=== PATIENT | male | born 1935 | race Caucasian/White ===

== ENCOUNTER 2019-02-26 16:07 | Inpatient (IN) | payer MEDICARE, OTHER ==
[~2019-02-26] VITALS: Ht 167.6 cm; Wt 66.9 kg
[~2019-02-26 16:07] MED LIST: ALEVE 220MG220 MG PO; ASPIRIN E.C. 8181 MG PO; EFFIENT10 MG PO; GLUCOPHAGE500 MG/TAB PO; LIPITOR20 MG PO; NITROQUICK0.4 MG SL; PRINIVIL5 MG PO; PROTONIX 40MG T40 MG PO; TIROSINT100 MCG PO; TOPROL XL 50MG50 MG PO
[2019-04-17] VITALS (13 sets, daily range): BP systolic 105–147; BP diastolic 53–72; PULSE 58–104; TEMP 97–98.8
[2019-04-17] MEDS ORDERED: ALEVE 220MG220 MG PO (05:16)
[2019-04-17] MEDS ORDERED: ASPIRIN 81M81 MG/TA2 PO (05:16)
[2019-04-17] MEDS ORDERED: LIPITOR20 MG PO (05:17)
[2019-04-17] MEDS ORDERED: TIROSINT50 MC1 PO (05:17)
[2019-04-17] MEDS ORDERED: TYLENOL 325MG325 MG PO (05:18)
[2019-04-17] MEDS ORDERED: ULTRAM 50MG TAB50 MG PO (05:18)
[2019-04-17] MEDS ORDERED: KAPSPARGO SPRIN50 MG PO (05:18)
--- NOTE | 2019-04-17 05:51 | NUR ---
Pt. arrived to the floor via wheelchair. Pt. is A&OX3, assessment complete. IV started to rt. forearm. Pt. denies pain or other needs, call light within reach.
--- NOTE | 2019-04-17 10:48 | NUR ---
PT TO ROOM 330 PER BED WITH REPORT FROM JOE GRAY @7200, PT IS A/O X3 LUNGS CLEAR, BOWEL SOUNDS PRESENT. DRESSING TO RIGHT HIP CDI WITH FOAM TAPE OVER INCISION . IV TO PUMP, SCDS AND TEDS BILATERALLY. PT ORIENTED TO ROOM AND ROOM SERVICE. FAMILY AT BEDSIDE.
--- NOTE | 2019-04-17 15:49 | NUR ---
HECTOR met with the patient and patient's son, Joey, to discuss discharge plan. The patient lives alone in [place]. He states that his daughter, Lisa Watts, lives in [place]. He reports independence with ADLs prior to hospitalization and has a cane and walker. The patient's PCP is Dr. Sushila Oconnell and he receives his medications at [facility]. He reports no difficulties obtaining his meds. The patient's advanced directives are in his chart. The patient's DPOA-HC is his daughter, Lisa Watts (ph#[phone]) and the alternate is Thee Jara. The patient and his son report that the plan is for the patient to go to [facility] upon discharge. HECTOR presented and explained the Patient Choice Form to the patient and patient's son. The patient's son verbalized understanding, signed, and he was provided a copy. HECTOR contacted and faxed a referral to Yolanda at [facility]. SW awaiting their screening.
--- NOTE | 2019-04-17 20:10 | NUR ---
Pt. sitting up in bed at this time. Pt. is A&OX3, assessment complete. IV to rt. forearm patent. Dressing to rt. hip CDI. Pt. reported pain at a 6 on pain scale, gave pain meds per orders. Valiente catheter to DD, clear yellow urine noted. Pt. denies further needs, call light within reach.
[2019-04-18 05:09] VITALS: BP 125/58; PULSE 82; TEMP 97.8
[2019-04-18 07:03] LABS: HEMATOCRIT 38.3 % (42.0-52.0); HEMOGLOBIN 12.6 g/dl (13.5-18.0)
--- NOTE | 2019-04-18 07:30 | NUR ---
PT RESTING IN BED ON ROUNDS, REPORT FROM JESUS GRAY. DR CHIN IN TO SEE PT THIS AM. SEE ORDERS.
[2019-04-18 07:36] VITALS: BP 137/55; PULSE 88; TEMP 98.1
--- NOTE | 2019-04-18 09:06 | NUR ---
PT WORKING WITH OT AT THIS TIME. TOLERATING WELL. WILL WORK WITH PT THIS PM.
--- NOTE | 2019-04-18 09:45 | NUR ---
DRESSING CHANGE COMPLETE, INCISION CDI WITH EDGES WELL APPROXIMATED. PT TOLERATED WELL.
--- NOTE | 2019-04-18 09:49 | NUR ---
Nova, at [facility], reports that they can accept the patient. SW to inform the patient and patient's family and will continue to follow.
[2019-04-18 12:18] VITALS: BP 118/50; PULSE 67; TEMP 98.7
--- NOTE | 2019-04-18 12:55 | NUR ---
PRADHAN CATHETER DISCONTINUED PER ORDERS, TIP INTACT, PT TOLERATED WELL. PT CONCERNED WITH URGENCY AND URINAL PROVIDED.
[2019-04-18 16:15] VITALS: BP 107/49; PULSE 58; TEMP 97.7
--- NOTE | 2019-04-18 16:51 | NUR ---
PT VOIDED CLEAR YELLOW URINE.
--- NOTE | 2019-04-18 20:00 | NUR ---
Report received, assumed care for retail shift manager. Assessment complete. Aquacell dressing to right hip. Rating pain 1/10 to right hip, fresh ice pack applied. SCDs and TEDs bilat. Voiding without difficulty. Tolerating diet. Teaching complete on proper alignment of lower extremities Verbalizes understanding. Call light in reach, bed in low position with wheels locked. Encouraged to call for questions or concerns. Verbalizes understanding. Will monitor.
[2019-04-18 20:41] VITALS: BP 132/56; PULSE 70; TEMP 98.5
[2019-04-18 23:47] VITALS: BP 117/58; PULSE 82; TEMP 97.8
[2019-04-19 04:30] VITALS: BP 130/53; PULSE 74; TEMP 98.7
[2019-04-19 07:10] LABS: HEMATOCRIT 37.2 % (42.0-52.0); HEMOGLOBIN 12.2 g/dl (13.5-18.0)
[2019-04-19 07:50] VITALS: BP 117/68; PULSE 83; TEMP 98.3
--- NOTE | 2019-04-19 09:45 | NUR ---
PT OUT TO PATERSON FOR THERAPY AMBULATING WITH SLOW STEADY GAIT. RETURNED TO ROOM. PAIN CONTROLLED WITH PO PAIN MEDS. DRESSING TO LEFT HIP CDI.
[2019-04-19 11:56] VITALS: BP 124/58; PULSE 77; TEMP 98.5
[2019-04-19 17:02] VITALS: BP 117/53; PULSE 60; TEMP 97.6
--- NOTE | 2019-04-19 18:53 | NUR ---
report to Agustina GRAY.
[2019-04-19 20:00] VITALS: BP 109/54; PULSE 73; TEMP 98.4
--- NOTE | 2019-04-19 20:00 | NUR ---
Report received, assumed care for crimper assembler. Assessment complete. VS stable. Denies pain/nausea/shortness of breath. Aquacell dressing to right hip C/D/I. Fresh ice pack applied. SCDs and Jim campoverde. Plan of care discussed for transfer to [place] for swing bed. Denies questions or concerns. Call light in reach. Bed in low position/wheels locked. Will monitor.
[2019-04-20] VITALS: BP 127/54; PULSE 71; TEMP 98.3
--- NOTE | 2019-04-20 00:30 | NUR ---
Called nurses station due to pain. Rating pain 8/10 to right hip-described as constant ache with intermittent sharp pain. Roxicodone given per dr order. Will monitor.
[2019-04-20 04:00] VITALS: BP 119/51; PULSE 57; TEMP 98.5
--- NOTE | 2019-04-20 04:30 | NUR ---
Awake in room states "I cant sleep due to the anticipation of leaving today." Denies questions or concerns. Aquacell to right hip remains C/D/I. Denies pain. Has voided well this shift. SCDs/TEDs bilat. Refused ice this time. Encouraged to call for questions or concerns. Verbalizes understanding. Call light in reach/bed in low position/wheels locked. Will monitor.
[2019-04-20] MEDS ORDERED: ASPI325T6 PO (06:25)
[2019-04-20] MEDS ORDERED: CELEBREX 200MG200 MG PO (06:25)
[2019-04-20] MEDS ORDERED: NORCO 325 MG-7.1 TAB PO (06:26)
[2019-04-20] MEDS ORDERED: SENNA-S 50 MG-81 TAB PO (06:26)
--- NOTE | 2019-04-20 06:50 | NUR ---
awake resting in bed, bedside shift report received from MARINA Berrios
[2019-04-20 07:14] VITALS: BP 110/48; PULSE 72; TEMP 97.7
--- NOTE | 2019-04-20 07:50 | NUR ---
had breakfast and tolerated well, full assessment completed, see interventions for further info, denies needs at this time
--- NOTE | 2019-04-20 09:10 | NUR ---
ambulated out to [place] with physical therapy for group exericses
--- NOTE | 2019-04-20 09:18 | NUR ---
The patient is to discharge today, 04/20, to [facility]. Transportation to be by private vehicle, via the patient's daughter. SW presented and explained the IM form to the patient. The patient verbalized understanding, signed, and he was provided a copy. No additional needs at this time.
[2019-04-20 09:43] VITALS: BP 110/48; PULSE 72; TEMP 97.7
--- NOTE | 2019-04-20 10:20 | NUR ---
ambulated back to room after therapy and assisted into bed, then WOOD HEEL FITTER MACHINE in and assited him with getting dressed for discharge
--- NOTE | 2019-04-20 11:55 | NUR ---
reviewed discharge instructions with patient and his family, discharged per to [facility]
--- NOTE | 2019-04-20 12:05 | NUR ---
discharged per WC
--- NOTE | 2019-04-20 12:18 | NUR ---
report called to Jayda at [facility]
== END 2019-04-20 12:05 | disposition swing bed (61) | DRG 470 ==
LOC: JCC 04-17 05:00
PROVIDERS: ADMIT Orthopaedic Surgery
PROC: 0SR90JZ Replacement of Right Hip Joint with Synthetic Substitute, Open Approach (ICD-10-PCS; principal; 2019-04-17 07:30)
DX: M16.11 Unilateral primary osteoarthritis, right hip (principal)
CPT/HCPCS: A4314; A9284; C1713; C1776; J0690; J1100; J2250; J2405; J2704; J3010; J7030; J7120